=== PATIENT | male | born 1970 | race Hispanic/Latino ===

== ENCOUNTER 2017-02-14 00:44 | Emergency (ER) | payer SELFPAY ==
[2017-02-14 01:05] VITALS: BP 137/89
[2017-02-14] MEDS ORDERED: DUONEB *Not for PRN Use IH ONE (01:08)
[2017-02-14 01:44] LABS: Basophils % (Auto) 0.6 % (0.0-1.8); Eosinophils % (Auto) 2.2 % (0.0-4.3); Hematocrit 40.1 % (35.5-45.6); Hemoglobin 13.4 gm/dl (11.8-15.2); Mean Corpuscular HGB Conc 33 % (32-34); Mean Corpuscular Hemoglobin 30 pg (28-32); Mean Corpuscular Volume 89 fl (84-94); Platelet Count 207 K/mm3 (140-440); Red Cell Distribution Width 12.9 % (13.2-15.2); White Blood Count 7.7 K/mm3 (4.5-11.0)
[2017-02-14 01:54] LABS: Anion Gap 12 mmol/L; BUN/Creatinine Ratio 13.33; Blood Urea Nitrogen 8 mg/dL (9-20); Calcium 8.8 mg/dL (8.4-10.2); Carbon Dioxide 32 mmol/L (22-30); Chloride 99.4 mmol/L (98-107); Glucose 105 mg/dL (75-100); Potassium 4.3 mmol/L (3.6-5.0); Sodium 139 mmol/L (137-145)
--- NOTE | 2017-02-14 09:48 | XRay Report ---
CHEST TWO VIEWS: 02/14/17 00:44:00 CLINICAL: Cough and fever. COMPARISON: None FINDINGS: Normal heart and pulmonary vasculature. The lungs are hyperexpanded and hyperlucent. No airspace disease or pleural effusion.The bones and soft tissues are unremarkable. IMPRESSION: COPD and no acute change.
--- NOTE | 2017-02-14 17:30 | ED Elopement Review ---
ED Pt Elopement review - Results review Lab results: Laboratory Tests 02/14/17 02/14/17 01:23 01:23 WBC 7.7 RBC 4.50 Hgb 13.4 Hct 40.1 MCV 89 MCH 30 MCHC 33 RDW 12.9 L Plt Count 207 Lymph % (Auto) 15.3 [place] % (Auto) 6.5 Eos % (Auto) 2.2 Baso % (Auto) 0.6 Lymph # 1.2 [place] # 0.5 Eos # 0.2 Baso # 0.0 Seg Neutrophils % 75.4 H Seg Neutrophils # 5.8 Sodium 139 Potassium 4.3 Chloride 99.4 Carbon Dioxide 32 H Anion Gap 12 BUN 8 L Creatinine 0.6 L Estimated GFR > 60 BUN/Creatinine Ratio 13.33 Glucose 105 H Calcium 8.8 - Call Back decision Pt Call Back Decision: No action required
== END 2017-02-14 05:04 | disposition left against medical advice (07) ==
LOC: ED 00:44
DX: R06.00 Dyspnea, unspecified (principal); Z53.21 Procedure and treatment not carried out due to patient leaving prior to being seen by health care provider
CPT/HCPCS: 36415; 71020; 80048; 85025; 94640

== ENCOUNTER 2017-02-14 21:59 | Emergency (ER) | payer SELFPAY ==
[2017-02-14 22:11] VITALS: BP 141/91
[2017-02-14] MEDS ORDERED: DUONEB *Not for PRN Use IH ONE (23:06)
[2017-02-14] MEDS ORDERED: DEPO-MEDROL INTRA-ARTI ONE (23:06)
--- NOTE | 2017-02-14 23:12 | Emergency Department Report ---
ED General Adult HPI - General Chief complaint: Upper Respiratory Infection Stated complaint: ERASTO Time Seen by Provider: 02/14/17 23:04 Source: patient Mode of arrival: Ambulatory Limitations: No Limitations - History of Present Illness Initial comments: cough wheezing 2 months worsened over past week Onset/Timin -: week(s) Location: chest Severity scale (0 -10): 3 Consistency: other (sob, wheezing ) Improves with: rest Worsens with: other (activity ) Associated Symptoms: cough, fever/chills, malaise, shortness of breath. denies : confusion, chest pain, headaches, loss of appetite, nausea/vomiting, rash, seizure, syncope Treatments Prior to Arrival: none - Related Data Home Medications Medication Instructions Recorded Confirmed Last Taken [place] 10-325 mg TAB 10 - 325 mg PO PRN PRN 02/14/17 02/14/17 Unknown Zolpidem [Ambien] 10 mg PO QHS 02/14/17 02/14/17 1 Day Ago Previous Rx's Medication Instructions Recorded Last Taken Type ALBUTEROL Inhaler [ProAir HFA 2 puff IH QID PRN #1 inhalation 02/15/17 Unknown Rx Inhaler] Azithromycin [Zithromax Z-MILAD] 250 mg PO DAILY #6 tablet 02/15/17 Unknown Rx P-Ephed HCl/Codeine/Guaifen 5 ml PO QID PRN #120 ml 02/15/17 Unknown Rx [Cheratussin DAC 30-10-100 mg/5 ml] predniSONE [Deltasone] 40 mg PO QDAY #5 tab 02/15/17 Unknown Rx Allergies Allergy/AdvReac Type Severity Reaction Status Date / Time No Known Allergies Allergy Verified 02/14/17 05:16 ED Review of Systems ROS: Stated complaint: ERASTO Other details as noted in HPI Constitutional: fever Eyes: denies: eye pain, eye discharge, vision change ENT: congestion Respiratory: cough, orthopnea, shortness of breath, SOB with exertion, wheezing. denies: SOB at rest, stridor Cardiovascular: dyspnea on exertion, orthopnea. denies: chest pain, palpitations, edema, syncope, paroxysmal nocturnal dyspnea Endocrine: no symptoms reported Gastrointestinal: denies: abdominal pain, nausea, diarrhea Genitourinary: denies: urgency, dysuria Musculoskeletal: denies: back pain, joint swelling, arthralgia Skin: denies: rash, lesions Neurological: denies: headache, weakness, paresthesias Psychiatric: denies: anxiety, depression Hematological/Lymphatic: denies: easy bleeding, easy bruising ED Past Medical Hx - Past Medical History Previous Medical History?: Yes Hx COPD: Yes Additional medical history: Hip pain - Surgical History Past Surgical History?: No - Social History Smoking Status: Current Every Day Smoker Substance Use Type: None - Medications Home Medications: Home Medications Medication Instructions Recorded Confirmed Last Taken Type [place] 10-325 mg TAB 10 - 325 mg PO PRN PRN 02/14/17 02/14/17 Unknown History Zolpidem [Ambien] 10 mg PO QHS 02/14/17 02/14/17 1 Day Ago History ALBUTEROL Inhaler [ProAir HFA 2 puff IH QID PRN #1 inhalation 02/15/17 Unknown Rx Inhaler] Azithromycin [Zithromax Z-MILAD] 250 mg PO DAILY #6 tablet 02/15/17 Unknown Rx P-Ephed HCl/Codeine/Guaifen 5 ml PO QID PRN #120 ml 02/15/17 Unknown Rx [Cheratussin DAC 30-10-100 mg/5 ml] predniSONE [Deltasone] 40 mg PO QDAY #5 tab 02/15/17 Unknown Rx ED Physical Exam - General Limitations: No Limitations General appearance: alert, anxious - Head Head exam: Present: atraumatic, normocephalic - Eye Eye exam: Present: normal appearance, PERRL, EOMI Pupils: Present: normal accommodation - ENT ENT exam: Present: normal orophraynx, mucous membranes moist, TM's normal bilaterally, normal external ear exam - Neck Neck exam: Present: normal inspection, full ROM. Absent: tenderness, lymphadenopathy, thyromegaly - Respiratory Respiratory exam: Present: wheezes, rhonchi, chest wall tenderness, accessory muscle use. Absent: stridor, decreased breath sounds, prolonged expiratory - Cardiovascular Cardiovascular Exam: Present: regular rate, normal rhythm, normal heart sounds. Absent: systolic murmur, diastolic murmur, rubs, gallop - GI/Abdominal GI/Abdominal exam: Present: soft, normal bowel sounds. Absent: tenderness, organomegaly, bruit, hernia - Rectal Rectal exam: Present: deferred - External exam: Present: normal external exam - Extremities Exam Extremities exam: Present: normal inspection, full ROM, normal capillary refill. Absent: tenderness, pedal edema, joint swelling, calf tenderness - Back Exam Back exam: Present: normal inspection, full ROM. Absent: tenderness, CVA tenderness (R), CVA tenderness (L), muscle spasm, paraspinal tenderness, vertebral tenderness - Neurological Exam Neurological exam: Present: alert, oriented X3, CN II-XII intact, normal gait, reflexes normal. Absent: motor sensory deficit - Psychiatric Psychiatric exam: Present: normal affect, normal mood - Skin Skin exam: Present: warm, dry, intact, normal color. Absent: rash, cyanosis ED Course Vital Signs 02/14/17 02/15/17 22:04 00:49 Temperature 98.3 F 99.4 F Pulse Rate 98 H Respiratory 24 Rate Blood Pressure 141/91 [Right] O2 Sat by Pulse 99 Oximetry - Reevaluation(s) Reevaluation #1: pt ambulated entire emergency department and back to room without LION, O2 sat 96 % room air, lungs mild exp wheezes, plan: dc to home, Zpack, albuterol inhaler, steroid burst pt encouraged to stop smoking, and follow up with primary care doctor for watermelon inspector treatment pt verbalized agreement and understanding of discharge plan, pt is currently ambulatory gait steady with nad at this time. 02/15/17 00:54 ED Medical Decision Making - Lab Data Result diagrams: 02/14/17 22:33 02/14/17 22:33 Laboratory Results - last 24 hr 02/14/17 02/14/17 22:33 22:33 VBG pH 7.375 Lactic Acid 1.00 Laboratory Last Values VBG pH 7.375 (7.320-7.420) 02/14/17 22:33 Lactic Acid 1.00 mmol/L (0.7-2.0) 02/14/17 22:33 Laboratory Tests 02/14/17 02/14/17 22:33 22:33 VBG pH 7.375 Lactic Acid 1.00 - Medical Decision Making pt is a 46 y/o w/m with 60 pack yr hx who presents for sob wheezing for 2 month worsening for past 2 weeks pt seen this am however left prior to completion of evaluation. pt advises wheezing noc fever cough productive thick white, and lion , pt previously seen by pcp rx inhaler but has runout , exam: pt presents thin, anxious lungs exp wheezing throughout, rhonchi that clear with cough, productive white thick , no lion with ambulation, cv: S1 and S2, no mrg, no edema , CXR: no opacities no infiltrates consistent with copd, EKG NSR , cbc : 7.7 plan: asifs, katharine, reevaluate. Critical care attestation.: If time is entered above; I have spent that time in minutes in the direct care of this critically ill patient, excluding procedure time. ED Disposition Clinical Impression: Bronchitis Disposition: TO HOME OR SELFCARE Is pt being admited?: No Does the pt Need Aspirin: No Condition: Good Additional Instructions: STOP SMOKING Prescriptions: ALBUTEROL Inhaler [ProAir HFA Inhaler] 2 puff IH QID PRN #1 inhalation PRN Reason: Shortness Of Breath Azithromycin [Zithromax Z-MILAD] 250 mg PO DAILY #6 tablet P-Ephed HCl/Codeine/Guaifen [Cheratussin DAC 30-10-100 mg/5 ml] 5 ml PO QID PRN #120 ml PRN Reason: Cough predniSONE [Deltasone] 40 mg PO QDAY #5 tab Referrals: PRIMARY CARE, [Primary Care Provider] - 3-5 Days Time of Disposition: :
[2017-02-14] MEDS ORDERED: DEPO-MEDROL IM ONE (23:14)
[2017-02-14 23:24] LABS: Basophils % (Auto) 0.4 % (0.0-1.8); Eosinophils % (Auto) 0.4 % (0.0-4.3); Hematocrit 41.7 % (35.5-45.6); Hemoglobin 13.3 gm/dl (11.8-15.2); Mean Corpuscular HGB Conc 32 % (32-34); Mean Corpuscular Hemoglobin 29 pg (28-32); Mean Corpuscular Volume 91 fl (84-94); Platelet Count 236 K/mm3 (140-440); Red Cell Distribution Width 13.2 % (13.2-15.2); White Blood Count 8.5 K/mm3 (4.5-11.0)
[2017-02-14] MEDS ORDERED: DEPO-MEDROL ONE (23:28)
[2017-02-14 23:46] LABS: Anion Gap 20 mmol/L; Blood Urea Nitrogen 6 mg/dL (9-20); Calcium 9.3 mg/dL (8.4-10.2); Carbon Dioxide 26 mmol/L (22-30); Glucose 107 mg/dL (75-100); Potassium 4.3 mmol/L (3.6-5.0); Sodium 140 mmol/L (137-145)
== END 2017-02-15 01:10 | disposition home or self-care (01) ==
LOC: ED 21:59
DX: J40 Bronchitis, not specified as acute or chronic (principal); F17.200 Nicotine dependence, unspecified, uncomplicated
CPT/HCPCS: 36415; 80048; 82140; 82805; 83735; 83880; 84484; 85025; 93005; 93010; 96372; 99283; J1030